=== PATIENT | female | born 1995 | race Caucasian/White ===

== ENCOUNTER 2022-01-03 01:56 | Emergency (ER) | payer MEDICAID ==
[2022-01-03 02:04] VITALS: BP 104/60
[2022-01-03] MEDS ORDERED: ACETAMINOPHEN 500 MG TAB PO ONE (02:46)
[2022-01-03] MEDS ORDERED: diphenhydrAMINE 25 MG CAP PO ONE (02:46)
[2022-01-03] MEDS ORDERED: FAMOTIDINE 20 MG TAB PO ONE (02:46)
[2022-01-03] MEDS ORDERED: predniSONE 20 MG TAB PO ONE (02:46)
[2022-01-03] MEDS ORDERED: CLINDAMYCIN 300 MG CAP PO ONE (02:46)
[2022-01-03] MEDS ORDERED: ONDANSETRON 4 MG ODT TAB PO ONE (02:51)
--- NOTE | 2022-01-03 02:59 | Emergency Department Report ---
ED Allergic Reaction HPI - General Chief complaint: Extremity Injury, Lower Stated complaint: LEG SWELLING/PAIN Source: patient Mode of arrival: Ambulatory Limitations: No Limitations - History of Present Illness Initial Comments: Patient is a 26-year-old [place] female with no past medical history who is approximately 38 weeks gestation presents to the ED with complaint of acute onset persistent painful itchy erythematous maculopapular urticarial rashes on her left lower leg and feet after being bitten by unknown insects about 7 hours ago. Speaking through a [employer] assistant speech language pathologist, patient states that initially the itching was mild but in the last 4 hours the itching and the swelling as well as pain have worsened. Patient also complains of acute exacerbation of her chronic right mandibular premolar and molar tooth ache with swollen gums. Patient denies swollen lips and tongue, dizziness, syncope, chest pain or shortness of breath, nausea and vomiting, diarrhea, abdominal pain, fever, chills, cough, sore throat, wheezing or dizziness. MD Complaint: allergic reaction, hives, other (left lower leg itchy tom nful erythematous rashes; right mandibular gingival swelling and premolar and molar tooth ache) -: Sudden, hour(s) (7) Exposure: insect bite Symptoms: rash, itching. denies: facial swelling, lip swelling, difficulty swallowing, difficulty breathing, orolingual swelling, syncopy, nausea, other, abdominal pain Treatment Prior to Arrival: none Previous Allergy History: none - Related Data Previous Rx's Medication Instructions Recorded Last Taken Type Acetaminophen [Tylenol] 500 mg PO Q6HR PRN #40 tablet 01/03/22 Unknown Rx Clindamycin [Clindamycin CAP] 300 mg PO Q8H #30 cap 01/03/22 Unknown Rx Famotidine [Pepcid] 20 mg PO Q12H #60 tablet 01/03/22 Unknown Rx diphenhydrAMINE [Benadryl CAP] 25 mg PO Q6HR PRN #40 capsule 01/03/22 Unknown Rx predniSONE [Deltasone] 40 mg PO QDAY #12 tab 01/03/22 Unknown Rx Allergies Allergy/AdvReac Type Severity Reaction Status Date / Time No Known Allergies Allergy Unverified 01/03/22 02:04 ED Review of Systems ROS: Stated complaint: LEG SWELLING/PAIN Other details as noted in HPI Constitutional: denies: chills, fever Eyes: denies: eye pain, eye discharge, vision change ENT: dental pain (Right mandibular premolar and molar tooth ache with swelling gingiva), other (Right mandibular gingival swelling, painful premolar and molar tooth ache). denies: ear pain, throat pain Respiratory: denies: cough, shortness of breath, wheezing Cardiovascular: denies: chest pain, palpitations Endocrine: no symptoms reported Gastrointestinal: denies: abdominal pain, nausea, vomiting, diarrhea Genitourinary: denies: urgency, dysuria, discharge Musculoskeletal: arthralgia (Palpable mild left lower leg pain and swelling due to erythematous maculopapular urticarial rashes). denies: back pain, joint swelling Skin: rash (Erythematous maculopapular urticarial rash on left lower leg), change in color, pruritus. denies: lesions Neurological: denies: headache, weakness, paresthesias Psychiatric: denies: anxiety, depression Hematological/Lymphatic: denies: easy bleeding, easy bruising ED Past Medical Hx - Social History Smoking Status: Never Smoker Substance Use Type: None - Medications Home Medications: Home Medications Medication Instructions Recorded Confirmed Last Taken Type Acetaminophen [Tylenol] 500 mg PO Q6HR PRN #40 tablet 01/03/22 Unknown Rx Clindamycin [Clindamycin CAP] 300 mg PO Q8H #30 cap 01/03/22 Unknown Rx Famotidine [Pepcid] 20 mg PO Q12H #60 tablet 01/03/22 Unknown Rx diphenhydrAMINE [Benadryl CAP] 25 mg PO Q6HR PRN #40 capsule 01/03/22 Unknown Rx predniSONE [Deltasone] 40 mg PO QDAY #12 tab 01/03/22 Unknown Rx ED Physical Exam - General Limitations: No Limitations General appearance: alert, in no apparent distress - Head Head exam: Present: atraumatic, normocephalic, normal inspection - Eye Eye exam: Present: normal appearance, PERRL, EOMI Pupils: Present: normal accommodation - ENT ENT exam: Present: mucous membranes moist, TM's normal bilaterally, normal external ear exam, other (Swollen, tender right mandibular gingiva with tender premolar and molar teeth;) - Neck Neck exam: Present: normal inspection, full ROM - Respiratory Respiratory exam: Present: normal lung sounds bilaterally. Absent: respiratory distress, wheezes, rales, rhonchi, stridor, chest wall tenderness, decreased breath sounds, prolonged expiratory - Cardiovascular Cardiovascular Exam: Present: regular rate, normal rhythm, normal heart sounds. Absent: systolic murmur, diastolic murmur, rubs, gallop - GI/Abdominal GI/Abdominal exam: Present: soft, normal bowel sounds, other (Gravid abdomen). Absent: tenderness, guarding, hyperactive bowel sounds, hypoactive bowel sounds, organomegaly, mass, bruit - Extremities Exam Extremities exam: Present: normal inspection, full ROM, tenderness (Palpable mild left lower leg swelling and tenderness due to erythematous maculopapular urticarial rashes), normal capillary refill, calf tenderness (Mild left calf swelling and tenderness due to erythematous maculopapular urticarial rashes). Absent: pedal edema - Back Exam Back exam: Present: normal inspection, full ROM. Absent: tenderness, CVA tenderness (L), muscle spasm, paraspinal tenderness, vertebral tenderness - Neurological Exam Neurological exam: Present: alert, oriented X3, CN II-XII intact, normal gait, reflexes normal - Psychiatric Psychiatric exam: Present: normal affect, normal mood - Skin Skin exam: Present: warm, dry, intact, rash (Erythematous maculopapular urticarial rashes diffusely on the left lower leg and foot), erythema, urticaria. Absent: normal color ED Course Vital Signs 01/03/22 02:01 Temperature 97.8 F Pulse Rate 94 H Respiratory 16 Rate Blood Pressure 104/60 O2 Sat by Pulse 98 Oximetry ED Medical Decision Making - Medical Decision Making This is a 26-year-old [place] female with no past medical history who is approximately 38 weeks gestation presents to the ED with complaint of acute onset persistent painful itchy erythematous maculopapular urticarial rashes on her left lower leg and feet after being bitten by unknown insects about 7 hours ago. Speaking through a [employer] assistant speech language pathologist, patient states that initially the itching was mild but in the last 4 hours the itching and the swelling as well as pain have worsened. Patient also complains of acute exacerbation of her chronic right mandibular premolar and molar tooth ache with swollen gums. In the ED, patient is alert and oriented x3 and is not in any distress. Patient was treated for pain in the ED, also treated for acute allergic reaction with oral steroids, Benadryl and Pepcid, and was also given initial oral antibiotics clindamycin. Patient was discharged home on medications for pain, mainly Tylenol, also given oral prednisone, Benadryl and Pepcid prescriptions as well as clindamycin antibiotic prescription. Patient was advised to follow-up with [facility] physician in 7 to 10 days for reevaluation or return to the ED immediately if symptoms get worse. - Differential Diagnosis Acute allergic reaction; urticaria; dental abscess; gingivitis Critical care attestation.: If time is entered above; I have spent that time in minutes in the direct care of this critically ill patient, excluding procedure time. ED Disposition Clinical Impression: Acute urticaria, Allergic to insect bites and stings, Chronic gingivitis, Dental abscess Acute allergic reaction Qualifiers: Encounter type: initial encounter Qualified Code(s): T78.40XA - Allergy, unspecified, initial encounter Disposition: HOME / SELF CARE / HOMELESS Is pt being admited?: No Does the pt Need Aspirin: No Condition: Stable Instructions: Allergies, Adult, [id number], Dental Abscess, [id number], Hives, [id number], Rash, Adult, [id number] Additional Instructions: Take medication with food, drink plenty of fluids, follow-up with your primary care physician or [facility] physician in 7 to 10 days for reevaluation. All these medications are safe to be taken during . Return to the ED immediately if your symptoms get worse. For dental complaints, ensure that you follow-up with a dentist after the delivery of your baby. Prescriptions: Acetaminophen [Tylenol] 500 mg PO Q6HR PRN #40 tablet PRN Reason: Pain , Severe (7-10) diphenhydrAMINE [Benadryl CAP] 25 mg PO Q6HR PRN #40 capsule PRN Reason: Itching Clindamycin [Clindamycin CAP] 300 mg PO Q8H #30 cap predniSONE [Deltasone] 40 mg PO QDAY #12 tab Famotidine [Pepcid] 20 mg PO Q12H #60 tablet Referrals: [facility] [Provider Group] - 7-10 days Time of Disposition: 03:10 Print Language: [id number]
== END 2022-01-03 03:36 | disposition home or self-care (01) ==
LOC: ED 01:56
DX: T78.49XA Other allergy, initial encounter (principal); T63.441A Toxic effect of venom of bees, accidental (unintentional), initial encounter; L50.9 Urticaria, unspecified; K05.10 Chronic gingivitis, plaque induced; K04.7 Periapical abscess without sinus; Z79.899 Other long term (current) drug therapy; X58.XXXA Exposure to other specified factors, initial encounter; Y92.89 Other specified places as the place of occurrence of the external cause
CPT/HCPCS: 99282; J3490; Q0162